=== PATIENT | male | born 1945 | race Caucasian/White ===

== ENCOUNTER 2021-05-15 23:55 | Emergency (ER) | payer OTHER ==
[~2021-05-15] VITALS: Ht 180.3 cm; Wt 111.6 kg
[2021-05-16] MEDS ORDERED: GELATIN SPONGE SIZE 12-7MM SPONGE. TP ONE (00:30)
--- NOTE | 2021-05-16 00:45 | PHYS DOC ---
Past Medical History Past Surgical History: Cancer Surgery (VAISHALI BARRON APRN) Smoking Status: Never Smoker Alcohol Use: None (VAISHALI BARRON APRN) General Adult EDM: Chief Complaint: LACERATION/AVULSION HPI: HPI: Patient is a 75-year-old male who presents to the emergency department today for bleeding from a laceration to the right side of his nose that started 45 minutes prior to arrival. Patient reports that he has some dry skin on his nose and he scratched it off and the bleeding started. Patient reports that he held pressure for 45 minutes before calling EMS. Patient takes a daily aspirin but does not take any other blood thinners. Patient has no additional complaints. (VAISHALI BARRON APRN) Review of Systems: Review of Systems: 14 body systems of the review of systems have been reviewed. See HPI for pertinent positive and negative responses, otherwise all other systems are negative, nonpertinent or noncontributory (VAISHALI BARRON APRN) Heart Score: C/O Chest Pain: N/A Risk Factors: Risk Factors: DM, Current or recent (<one month) smoker, HTN, HLP, family history of CAD, obesity. Risk Scores: Score 0 - 3: 2.5% MACE over next 6 weeks - Discharge Home Score 4 - 6: 20.3% MACE over next 6 weeks - Admit for Clinical Observation Score 7 - 10: 72.7% MACE over next 6 weeks - Early Invasive Strategies (VAISHALI BARRON APRN) Current Medications: Current Medications Medications (Trade) Dose Ordered Sig/Bimal Start Time Stop Time Status Last Admin Dose Admin Gelatin (Gelfoam Size 12-7mm) 1 each 1X ONCE 05/16/21 00:30 05/16/21 00:31 DC 05/16/21 00:40 1 EACH (VAISHALI BARRON APRN) Allergies: Allergies: Allergies Coded Allergies Type Severity Reaction Last Updated Verified clopidogrel Adverse Reaction Severe 05/16/21 Yes (VAISHALI BARRON APRN) Physical Exam: PE: Constitutional: Well developed, well nourished, no acute distress, non-toxic appearance. [] HENT: Normocephalic, atraumatic, bilateral external ears normal, oropharynx moist, no oral exudates, dry skin noted to nose, tiny skin tear to r. side of nose with active bleeding Eyes: PERRL, EOMI, conjunctiva normal, no discharge. [] Neck: Normal range of motion, no stridor Cardiovascular:Heart rate regular rhythm, no murmur [] Lungs & Thorax: Bilateral breath sounds clear to auscultation [] Abdomen: Bowel sounds normal, soft, no tenderness, no masses, no pulsatile masses. [] Skin: Warm, dry, no erythema, no rash. [] Back: Normal range of motion Extremities: No tenderness, no cyanosis, no clubbing, ROM intact, no edema. [] Neurologic: Alert and oriented X 3, normal motor function, normal sensory function, no focal deficits noted. [] Psychologic: Affect normal, judgement normal, mood normal. [] (VAISHALI BARRON APRN) Current Patient Data: Vital Signs: Vital Signs Date Time Temp Pulse Resp B/P (MAP) Pulse Ox O2 Delivery O2 Flow Rate FiO2 05/16/21 00:03 97.6 67 18 165/74 (104) 97 Room Air 97.6 (VAISHALI BARRON APRN) EKG: EKG: [] (VAISHALI BARRON APRN) Radiology/Procedures: Radiology/Procedures: [] (VAISHALI BARRON APRN) Course & Med Decision Making: Course & Med Decision Making Pertinent Labs and Imaging studies reviewed. (See chart for details) Patient presents to the emergency department for bleeding from a skin tear to t he right side of his nose that started 45 minutes prior to arrival. Patient reports that he has been applying direct pressure and has been unable to get the bleeding to stop. He states that he takes a daily aspirin but no other blood thinners. Skin tear does not require any sutures. Gelfoam ordered for patient and direct pressure applied. Gelfoam was removed, rebleeding occurred. Unable to stop the bleeding with direct pressure and glue. Therefore, suture was placed to stop the bleeding. Patient tolerated procedure. Laceration is no longer bleeding. Patient educated on suture removal. I discussed with patient all findings and diagnostic testing as well as the need to follow-up with PCP for further evaluation and treatment or return to the ER if any new or worsening symptoms. Strict return precautions were also discussed at length. Patient voiced understanding and agreement with the plan. Patient is hemodynamically stable at the time of disposition. (VAISHALI BARRON APRN) Course & Med Decision Making Patients Care and treatment plan provided by ER Nurse Practitioner. I was available for consult. Patient's chart reviewed. (EDSON GODOY DO) Taishaon Disclaimer: Елена Disclaimer: This electronic medical record was generated, in whole or in part, using a voice recognition dictation system. (VAISHALI BARRON APRN) Laceration Repair Lac Repair Time:0120 Confirmed: Patient, procedure, site, and site correct Consent: Patient has given verbal consent Laceration location: Right side of nose Shape: Puncture Depth: Superficial Details: Clean with no foreign material Neurovascular, tendon exam: Intact Preparation: Sterile field established with Betadine Skin closure: Simple interrupted sutures placed Size of suture: 6-0 Ethilon Number of sutures: 1 Complexity: Single layer Post procedure exam: Circulation, motor, sensory exam intact, bleeding controlled. Complications: None Patient tolerated: Well Performed by: self Total time: 5 minutes (VAISHALI BARRON APRN) Departure Departure Impression: Primary Impression: Laceration Disposition: 01 HOME / SELF CARE / HOMELESS Condition: GOOD Patient Instructions: Laceration Care, Adult Additional Instructions: You were seen in the emergency department for a laceration. This was repaired with a suture. Please keep clean and dry and try not to pick at site. Please have your suture removed in 7 to 10 days. You can follow-up with your primary care provider return to the emergency department to have the suture removed. Please return to the emergency department if you develop rebleeding at site. VAISHALI BARRON APRN May 16, 2021 00:45 EDSON GODOY DO May 16, 2021 06:10
[2021-05-16 01:35] VITALS: BP 189/80
== END 2021-05-16 02:10 | disposition home or self-care (01) ==
LOC: ER 23:55
DX: S01.21XA Laceration without foreign body of nose, initial encounter (principal); Z88.8 Allergy status to other drugs, medicaments and biological substances; Y28.8XXA Contact with other sharp object, undetermined intent, initial encounter; Y93.89 Activity, other specified; Y92.89 Other specified places as the place of occurrence of the external cause; Y99.8 Other external cause status
CPT/HCPCS: 12051; 99284